=== PATIENT | male | born 1955 ===

== ENCOUNTER 2019-10-22 16:54 | Observation (INO) | payer SELFPAY ==
[2019-10-22] VITALS (13 sets, daily range): BP systolic 112–138; BP diastolic 54–77; PULSE 46–63; RESP 15–22; TEMP 36.6–37.9; O2SAT 95–100; BMI 25.0
--- NOTE | 2019-10-22 16:57 | ECG_ITS ---
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 Measurements Intervals [place] Rate: 48 P: 67 [place]: 122 QRS: 82 QRSD: 102 T: -83 QT: 493 QTc: 443 Interpretive Statements SINUS BRADYCARDIA ST DEVIATION AND MODERATE T-WAVE ABNORMALITY, CONSIDER INFERIOR ISCHEMIA [-0.1+ mV T WAVE IN II/aVF] No previous ECG available for comparison Electronically Signed On 10-22-2019 18:08:06 CDT by Prasanth Arias M.D. [email or web address] [facility].[employer]/store/NU/[id number] f
[2019-10-22] MEDS: sodium chloride 0.9% 1,000 ML 999 ML IV ×2 (18:02→18:41)
[2019-10-22 18:14] LABS: Basophils # 0.1 10^3/uL (0.0-0.1); Basophils % 0.4 %; Hematocrit 44.3 % (42.0-52.0); Hemoglobin 15.2 g/dL (11.7-16.6); Lymphocytes % 15.2 %; Mean Corpuscular HGB Conc 34.3 g/dL (30.0-36.0); Mean Corpuscular Hemoglobin 32.4 pg (28.0-34.0); Mean Corpuscular Volume 94.5 fL (80-94); Mean Platelet Volume 10.7 fL (7.4-10.4); Monocytes % 7.2 %; Neutrophils # 10.13 10^3/uL (1.8-7.7); Neutrophils % 76.7 %; Nucleated Red Blood Cells % 0 %; Platelet Count 281 10^3/cmm (130-400); Red Blood Count 4.69 10^6/uL (4.1-5.3); Red Cell Distribution Width 12.7 % (12.1-15.1); White Blood Count 13.2 10^3/uL (4.0-10.0)
[2019-10-22] MEDS: famotidine 20 mg/2 mL INJ 40 MG IVP (18:40)
[2019-10-22 18:41] LABS: Alanine Aminotransferase 120 U/L (0-41); Albumin Level 4.8 g/dL (3.5-5.2); Alkaline Phosphatase 127 IU/L (40-130); Anion Gap 16.4 (5-19); Aspartate Amino Transferase 98 U/L (0-40); Blood Urea Nitrogen 13 mg/dL (8-23); Calcium 9.9 mg/dL (8.5-10.5); Carbon Dioxide 24 mmol/L (22-29); Chloride 99 mmol/L (98-107); Globulin 3.2 g/dL (1.3-4.6); Glomerular Filtration Rate 113.9 mL/min (90-130); Glucose 150 mg/dL (65-115); Osmolality Calculated 281 mOsm/kg (285-295); Potassium 3.4 mmol/L (3.5-5.1); Sodium 136 mmol/L (136-145); Total Bilirubin 1.3 mg/dL (0.15-1.2)
[2019-10-22] MEDS: ondansetron 2 mg/ML SDV 2 mL 4 MG IVP (18:41)
[2019-10-22 18:44] LABS: Troponin(5th) Baseline 7 ng/L (0-15)
--- NOTE | 2019-10-22 18:54 | PC.NURSE ---
Report given to Raudel Owens RN
--- NOTE | 2019-10-22 18:57 | ECG_ITS ---
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 Measurements Intervals [place] Rate: 45 P: [place]: -1 QRS: 88 QRSD: 109 T: -75 QT: 487 QTc: 424 Interpretive Statements SUPRAVENTRICULAR BRADYCARDIA, possibly junctional rhythm ST DEVIATION AND MODERATE T-WAVE ABNORMALITY, CONSIDER INFERIOR ISCHEMIA [-0.1+ mV T WAVE IN II/aVF] Compared to ECG 10/22/2019 18:01:13 Sinus bradycardia no longer present T-wave abnormality still present Possible ischemia still present Electronically Signed On 10-23-2019 21:08:44 CDT by Stephen Kim M.D. [id number]
--- NOTE | 2019-10-22 19:30 | ED_ITS ---
HPI - Nausea/Vomiting/Diarrhea General: Chief complaint: Nausea/Vomiting/Diarrhea Stated complaint: syncope/n/v Time Seen by Provider: 10/22/19 18:01 History of Present Illness: HPI Narrative: This patient is a 64-year-old male presenting today with chills, nausea vomiting and abdominal pain. His symptoms have been going on today as far as the vomiting but he has had several days of being very fatigued and not feeling well. He has had shaking chills. He had a syncopal or near syncopal episode today. His says he is normally extremely active and this is definitely not himself. Dr. Cloud is his PCP.He does have a history of hepatitis C. He has had hernia repairs but no other abdominal surgeries. MD elicited complaint: nausea, vomiting and abdominal pain Onset (ago): day(s) (1) Associated nausea: Yes Associated abdominal pain: Yes Location of pain: RUQ Pain consistency: constant Severity: moderate Quality: cramping Exacerbating factors: none Relieving factors: none Associated symtoms: Reports dizziness, fatigue, fevers/chills, anorexia, malaise and nausea Review of Systems General: Reports: 10 or more systems reviewed and unremarkable except in HPI and below Const: Reports: fatigue and malaise GI: Reports: nausea Neuro: Reports: dizziness PFSH ED PFSH: Medical History Back pain Surgical History S/P bilateral inguinal hernia repair Status post colonoscopy Physical Exam Const: COMMON NORMALS: average body habitus, patient oriented x3 and alert EXAM LIMITATIONS: other limitations (Patient is curled up on the stretcher with shaking chills) GENERAL APPEARANCE: cooperative, in distress and anxious ORIENTATION/CONSCIOUSNESS: Yes awake HENMT: HEAD & SCALP: normal to inspection FACE & SINUS: normal facial exam Eye: GENERAL EYE: appearance normal, both eyes and all related structures Neck/C-Spine: COMMON NORMALS: supple, no meningeal signs and no JVD Chest: COMMONS NORMALS: normal inspection of the chest Resp: COMMON NORMALS: normal respiratory effort, No use of accessory muscles and clear to auscultation bilaterally AUSCULTATION: clear to auscultation bilaterally Cardio: COMMON NORMALS: no JVD, regular rate, regular rhythm and No murmurs present (Cardio) RATE: regular rate RHYTHM: regular rhythm GI: COMMON NORMALS: Normal to inspection, nondistended, normoactive bowel sounds present and non-tender PALPATION: Yes Tenderness to palpation present (GI) Details: RUQ Back/Pelvis: COMMON NORMALS: thoracic and lumbar spine normal to inspection Extremity: COMMON NORMALS: normal to inspection Neuro: COMMON NORMALS: patient oriented x3, moves all extremities, no focal motor deficits and no sensory deficits noted SENSORIUM/ORIENTATION: Yes alert MENINGEAL SIGNS: Yes no meningeal signs Psych: COMMON NORMALS: mental status grossly normal, cooperative and normal affect Skin: COMMON NORMALS: no rashes or lesions noted and turgor normal GENERAL SKIN EXAM: no rashes or lesions noted and turgor normal Course ED course: Patient with abdominal pain, chills but no documented fever, vomiting he was given fluids, antiemetics. Work-up showed a slightly elevated white count. CT showed a enlarged appendix consistent with early appendiciti s.He will be admitted to Dr. Pryor for surgery in the morning. Zosyn Q8 hours ordered. Vital Signs: Vital signs: Vital Signs Temperature 100 F H 10/23/19 09:35 Pulse Rate 53 L 10/23/19 09:35 Respiratory Rate 18 10/23/19 09:35 Blood Pressure 105/53 10/23/19 09:35 Pulse Oximetry 98 10/23/19 09:35 MDM - Nausea/Vomiting/Diarrhea Lab Data: Labs: Lab Results 10/22/19 10/22/19 10/22/19 Range/Units 18:05 18:05 18:05 WBC 13.2 H (4.0-10.0) 10^3/ uL RBC 4.69 (4.1-5.3) 10^6/u L Hgb 15.2 (11.7-16.6) g/dL Hct 44.3 (42.0-52.0) % MCV 94.5 H (80-94) fL MCH 32.4 (28.0-34.0) pg MCHC 34.3 (30.0-36.0) g/dL RDW 12.7 (12.1-15.1) % Plt Count 281 (130-400) 10^3/c mm MPV 10.7 H (7.4-10.4) fL Neut % (Auto) 76.7 % Lymph % (Auto) 15.2 % [place] % (Auto) 7.2 % Eos % (Auto) 0.0 % Baso % (Auto) 0.4 % Neut # (Auto) 10.13 H (1.8-7.7) 10^3/u L Lymph # (Auto) 2.0 (0.8-4.8) 10^3/u L [place] # (Auto) 1.0 H (0.2-0.9) 10^3/u L Eos # (Auto) 0.0 (0.0-0.8) 10^3/u L Baso # (Auto) 0.1 (0.0-0.1) 10^3/u L Nucleated RBC % (a uto) 0 % Nucleated RBCs # 0.0 /100WBC Sodium 136 (136-145) mmol/L Potassium 3.4 L (3.5-5.1) mmol/L Chloride 99 (98-107) mmol/L Carbon Dioxide 24 (22-29) mmol/L Anion Gap 16.4 (5-19) BUN 13 (8-23) mg/dL Creatinine 0.7 (0.7-1.2) mg/dL GFR Calculation 113.9 (90-130) mL/min Glucose 150 H (65-115) mg/dL Calculated Osmolal ity 281 L (285-295) mOsm/k g Calcium 9.9 (8.5-10.5) mg/dL Total Bilirubin 1.3 H (0.15-1.2) mg/dL AST 98 H (0-40) U/L ALT 120 H (0-41) U/L Alkaline Phosphata se 127 (40-130) IU/L Troponin T Baselin e 7 (0-15) ng/L Troponin T [address] [place] (0-15) ng/L Delta Troponin T (0-10) ABS# Total Protein 8.0 (6.6-8.7) g/dL Albumin 4.8 (3.5-5.2) g/dL Globulin 3.2 (1.3-4.6) g/dL Urine Color (Yellow) Urine Appearance (CLEAR) Urine pH (5-7) Ur Specific Gravit y (1.005-1.030) Urine Protein (Negative) Urine Glucose (UA) (Normal) Urine Ketones (Negative) Urine Blood (Negative) Urine Nitrate (Negative) Urine Bilirubin (NEGATIVE) Urine Urobilinogen (Negative) mg/dL Ur Leukocyte Camelia ase (Negative) 10/22/19 10/22/19 Range/Units 19:28 19:59 WBC (4.0-10.0) 10^3/ uL RBC (4.1-5.3) 10^6/u L Hgb (11.7-16.6) g/dL Hct (42.0-52.0) % MCV (80-94) fL MCH (28.0-34.0) pg MCHC (30.0-36.0) g/dL RDW (12.1-15.1) % Plt Count (130-400) 10^3/c mm MPV (7.4-10.4) fL Neut % (Auto) % Lymph % (Auto) % [place] % (Auto) % Eos % (Auto) % Baso % (Auto) % Neut # (Auto) (1.8-7.7) 10^3/u L Lymph # (Auto) (0.8-4.8) 10^3/u L [place] # (Auto) (0.2-0.9) 10^3/u L Eos # (Auto) (0.0-0.8) 10^3/u L Baso # (Auto) (0.0-0.1) 10^3/u L Nucleated RBC % (a uto) % Nucleated RBCs # /100WBC Sodium (136-145) mmol/L Potassium (3.5-5.1) mmol/L Chloride (98-107) mmol/L Carbon Dioxide (22-29) mmol/L Anion Gap (5-19) BUN (8-23) mg/dL Creatinine (0.7-1.2) mg/dL GFR Calculation (90-130) mL/min Glucose (65-115) mg/dL Calculated Osmolal ity (285-295) mOsm/k g Calcium (8.5-10.5) mg/dL Total Bilirubin (0.15-1.2) mg/dL AST (0-40) U/L ALT (0-41) U/L Alkaline Phosphata se (40-130) IU/L Troponin T Baselin e (0-15) ng/L Troponin T [address] [place] 9.40 (0-15) ng/L Delta Troponin T 2.40 (0-10) ABS# Total Protein (6.6-8.7) g/dL Albumin (3.5-5.2) g/dL Globulin (1.3-4.6) g/dL Urine Color Yellow (Yellow) Urine Appearance Clear (CLEAR) Urine pH 6.5 (5-7) Ur Specific Gravit y 1.015 (1.005-1.030) Urine Protein Neg (Negative) Urine Glucose (UA) Norm (Normal) Urine Ketones Negative (Negative) Urine Blood Neg (Negative) Urine Nitrate Negative (Negative) Urine Bilirubin Neg (NEGATIVE) Urine Urobilinogen Neg (Negative) mg/dL Ur Leukocyte Camelia ase Negative (Negative) Discharge Plan Discharge Patient Disposition: Admitted As Inpatient Admit Provider: René Pryor Discharge Date/Time: 10/22/19 23:13 Coding Level of Care Code ED Inspector Coated Fabrics for Chg Fwd Exam Comprehensive
--- NOTE | 2019-10-22 19:58 | CTR_ITS ---
PROCEDURE INFORMATION: Exam: CT Abdomen And Pelvis With Contrast Exam date and time: 10/22/2019 8:00 PM Age: 64 years old Clinical indication: Nausea and vomiting; Abdominal pain; Localized; Right lower quadrant (rlq); Prior surgery; Surgery type: Hernia; Additional info: Abdominal pain, fever TECHNIQUE: Imaging protocol: Computed tomography of the abdomen and pelvis with intravenous contrast. Radiation optimization: All CT scans at this facility use at least one of these dose optimization techniques: automated exposure control; mA and/or kV adjustment per patient size (includes targeted exams where dose is matched to clinical indication); or iterative reconstruction. Contrast material: OMNI 300; Contrast volume: 95 ml; Contrast route: INTRAVENOUS (IV); COMPARISON: CT abdomen pelvis w con* [id number] 03/25/2016 5:31 PM RADIATION DOSE METRICS: Total DLP (mGy-cm): 897.86 FINDINGS: Lungs: And limited assessment of the lung bases fails to reveal evidence for active cardiopulmonary process. Liver: Suspected very tiny hepatic cyst dome right hepatic lobe stable. Liver otherwise unremarkable. No visible hepatic mass. Gallbladder and bile ducts: Normal. No calcified stones. No ductal dilation. Pancreas: Normal. No ductal dilation. Spleen: Normal. No splenomegaly. Adrenals: Normal. No mass. Kidneys and ureters: Left nephrolithiasis the largest measuring 8.5 mm at the equator. A total of 4 nonobstructing caliceal foci of nephrolithiasis left kidney identified. No hydronephrosis or perinephric fluid. No visible ureterolithiasis. 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 No hydronephrosis or perinephric fluid right kidney. No visible nephrolithiasis right kidney. Right renal artery origin lobe off the distal aorta just before the bifurcation. Stomach and bowel: Small hiatal hernia. Nonobstructive bowel pattern. No visible significant adynamic or reactive ileus. Appendix: Examination reveals findings suggesting the presence of low-grade acute appendicitis. The appendix on today's examination is located low in the pelvis and appears significantly more prominent than on the examination of 03/25/2016. No visible periappendiceal abscess or extraluminal gas. Intraperitoneal space: No free fluid the pelvis. Vasculature: The abdominal aorta is nonaneurysmal. Mild arterial sclerotic disease. Lymph nodes: Unremarkable. No enlarged lymph nodes. Bladder: Unremarkable as visualized. Reproductive: Mild prostate hypertrophy. Bones/joints: No visible acute osseous abnormality. Degenerative disease and degenerative disc disease of the spine with vacuum disc phenomenon L3/4, L4/5, and L5/S1. Spondylosis deformans. Soft tissues: Unremarkable. CT/CT abdomen pelvis w con* [id number] IMPRESSION: 1. Findings suspicious for low-grade uncomplicated acute appendicitis. 2. Left nephrolithiasis without hydronephrosis or hydroureter. No visible ureterolithiasis. 3. Other nonemergent and nonurgent findings as detailed in text. Radiation Dose CTDIVOL = (mGy): DLP = 897.86 (mGy-cm)
[2019-10-22 20:05] LABS: Add Urine Microscopic? NO
[2019-10-22 20:16] LABS: Bilirubin Urine Neg (NEGATIVE); Blood Urine Neg (Negative); Glucose Urine UA Norm (Normal); Ketones Urine Negative (Negative); Leukocyte Esterase Urine Negative (Negative); Nitrate Urine Negative (Negative); Protein Urine Neg (Negative); Specific Gravity, Urine 1.015 (1.005-1.030); Urine Appearance Clear (CLEAR); Urine Color Yellow (Yellow); Urobilinogen Urine Neg (Negative); pH Urine 6.5 (5-7)
[2019-10-22] MEDS: LORazepam 2 mg/mL INJ 1 mL 0.5 MG IVP (20:35)
[2019-10-22] MEDS: iohexol 300 mg/mL 100 mL Btl IV (20:57)
[2019-10-22] MEDS: piperacillin-tazobactam 3.375 GM in sodium chloride 0.9% (plus) 50 ML IV (22:22)
--- NOTE | 2019-10-22 22:57 | ECG_ITS ---
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 Measurements Intervals [place] Rate: 48 P: [place]: -1 QRS: 71 QRSD: 105 T: -46 QT: 562 QTc: 503 Interpretive Statements Possible junctional rhythm MODERATE T-WAVE ABNORMALITY, CONSIDER INFERIOR ISCHEMIA [-0.1+ mV T WAVE IN II/aVF] Compared to ECG 10/22/2019 19:04:53 No significant changes Electronically Signed On 10-23-2019 21:14:17 CDT by Stephen Kim M.D. [email or web address] [id number]
[2019-10-22 23:30] LABS: Troponin 5 6HR 14.55 ng/L (0-15)
[2019-10-22 23:53] LABS: Troponin 5 6HR Delta 7.55 ng/L (0-12)
[2019-10-23] VITALS (14 sets, daily range): BP systolic 100–136; BP diastolic 53–71; PULSE 42–57; RESP 16–19; TEMP 36.8–37.7; O2SAT 94–100
[2019-10-23] MEDS: sodium chlor 0.9% + KCl 20 mEq 20 MEQ/1,000 ML BAG 100 MEQ IV ×2 (02:24→14:43)
--- NOTE | 2019-10-23 09:44 | P.ANESASSM_ITS ---
Pre-Anesthetic Assessment Pre-Anesthetic Assessment: Height/Weight: Height 1.7 m Weight 72.575 kg Temp Pulse Resp BP Pulse Ox 99.0 F 57 L 18 107/63 98 10/23/19 08:00 10/23/19 08:00 10/23/19 08:00 10/23/19 08:00 10/23/19 08:00 Preop Diagnosis: acute appendicitis Proposed Procedure: Operation Date: 10/23/19 09:55 Proposed Procedures p Laparoscopic Appendectomy(Not Applicable) - René Pryor MD Social: Social History: No alcohol and No tobacco Exam: Pre-Anes Outpt Exam: alert, oriented x 3, clear to auscultation bilaterally and regular rate & rhythm Airway: Submandibular: WNL Cervical ROM: WNL MP: 2 Dentition: Other (poor dentation) History/ROS: No significant history except as noted Pulmonary: Pulmonary: None reported CV/HEM: CV/HEM: None reported : : None reported Hepatic: Hepatic: Hepatitis (h/o Hep C) GI: GI: GERD (occ) Metabolic: Metabolic: None reported Musc/skel: Musc/skel: OA/DJD Neuropsych: Neuropsych: Anxiety Anesthetic Plan: ASA status: 2 Anesthesia: Anesthesia Evaluation and General Risk of > 500 ml blood loss (7ml/kg in children): No Meds/Allergies Current Medications: Current Medications Generic Name Dose Route Start Last Admin Trade Name Freq PRN Reason Stop Dose Admin Potassium Chloride /Sodium Chloride 20 meq in 1,000 m ls @ 100 mls/hr 10/23/19 01:30 10/23/19 02:24 Sodium Chlor 0.9 % + Kcl 20 Meq IV 100 mls/hr .Q10H SEAMUS Administration Data Anesthesia CBC & Chem 7: 10/22/19 18:05 10/22/19 18:05 Other Labs: Laboratory Results - last 48 hr 10/22/19 10/22/19 10/22/19 18:05 18:05 18:05 WBC 13.2 H RBC 4.69 Hgb 15.2 Hct 44.3 MCV 94.5 H MCH 32.4 MCHC 34.3 RDW 12.7 Plt Count 281 MPV 10.7 H Neut % (Auto) 76.7 Lymph % (Auto) 15.2 [place] % (Auto) 7.2 Eos % (Auto) 0.0 Baso % (Auto) 0.4 Neut # (Auto) 10.13 H Lymph # (Auto) 2.0 [place] # (Auto) 1.0 H Eos # (Auto) 0.0 Baso # (Auto) 0.1 Nucleated RBC % (auto) 0 Nucleated RBCs # 0.0 Sodium 136 Potassium 3.4 L Chloride 99 Carbon Dioxide 24 Anion Gap 16.4 BUN 13 Creatinine 0.7 GFR Calculation 113.9 Glucose 150 H Calculated Osmolality 281 L Calcium 9.9 Total Bilirubin 1.3 H AST 98 H ALT 120 H Alkaline Phosphatase 127 Troponin T Baseline 7 Troponin T 120 Minute Delta Troponin T Troponin T Hi Sens 6Hr Troponin T Hi Sens 6Hr Delta Total Protein 8.0 Albumin 4.8 Globulin 3.2 Urine Color Urine Appearance Urine pH Ur Specific [place] Urine Protein Urine Glucose (UA) Urine Ketones Urine Blood Urine Nitrate Urine Bilirubin Urine Urobilinogen Ur Leukocyte Esterase 10/22/19 10/22/19 10/22/19 19:28 19:59 22:58 WBC RBC Hgb Hct MCV MCH MCHC RDW Plt Count MPV Neut % (Auto) Lymph % (Auto) [place] % (Auto) Eos % (Auto) Baso % (Auto) Neut # (Auto) Lymph # (Auto) [place] # (Auto) Eos # (Auto) Baso # (Auto) Nucleated RBC % (auto) Nucleated RBCs # Sodium Potassium Chloride Carbon Dioxide Anion Gap BUN Creatinine GFR Calculation Glucose Calculated Osmolality Calcium Total Bilirubin AST ALT Alkaline Phosphatase Troponin T Baseline Troponin T 120 Minute 9.40 Delta Troponin T 2.40 Troponin T Hi Sens 6Hr 14.55 Troponin T Hi Sens 6Hr Delta 7.55 Total Protein Albumin Globulin Urine Color Yellow Urine Appearance Clear Urine pH 6.5 Ur Specific [place] 1.015 Urine Protein Neg Urine Glucose (UA) Norm Urine Ketones Negative Urine Blood Neg Urine Nitrate Negative Urine Bilirubin Neg Urine Urobilinogen Neg Ur Leukocyte Esterase Negative Cardiac Studies: No Data to Display
--- NOTE | 2019-10-23 09:55 | P.HP_ITS ---
Providers/Chief Complaint Admitting Physician: René Pryor MD Primary Care Provider: Fabrizio Cloud MD Chief Complaint: syncope/n/v History of Present Illness Aramis Dalal is a 64 year old male who states that been has been dealing with intermittent abdominal pain mainly on the right side for the last couple of months but yesterday presented to the ER with severe nausea and vomiting. Patient states the pain is localized to the right lower quadrant, no aggravating or relieving factors. Does not radiate. Denies any constipation or diarrhea. His last colonoscopy was 2 years ago and he needs one every 5 years. No bleeding per rectum. No fevers or chills. Review of Systems General: Reports: 10 or more systems reviewed and unremarkable except in HPI and below Medications/Allergies Home Medications Medication Instructions Recorded Confirmed Last Taken Type Vitamin B-12 1 tab PO DAILY 10/22/19 10/22/19 10/22/19 History alprazolam [Xanax] 0.5 mg PO BID PRN 10/22/19 10/22/19 10/21/19 History naproxen sodium [Aleve] 660 mg PO PRN 10/22/19 10/22/19 Unknown History tramadol 50 mg PO QID PRN 10/22/19 10/22/19 10/22/19 07:30 History Allergies Allergy/AdvReac Type Severity Reaction Status Date / Time No Known Allergies Allergy Unverified 10/22/19 18:08 PFSH Acute PFSH: Medical History Back pain Surgical History S/P bilateral inguinal hernia repair Status post colonoscopy Vitals/I&O/Wt Last Vital Signs Temp 100 F H 10/23/19 09:35 Pulse 53 L 10/23/19 09:35 Resp 18 10/23/19 09:35 BP 105/53 10/23/19 09:35 Pulse Ox 98 10/23/19 09:35 10/22/19 10/23/19 10/23/19 22:59 06:59 14:59 Intake Total 2049 Output Total 300 / 300 Balance 2049 -1749 Weight last 48 hrs Weight 160 lb Physical Exam Narrative: EXAM NARRATIVE: HEENT: Normocephalic Eye: Sclera /conjunctiva normal Respiratory and chest: Bilateral clear breath sounds on auscultation Cardiovascular: Normal S1 and S2 heart sounds Abdomen: Soft to palpation, tender right lower quadrant, rebound tenderness present Neurological: Oriented to place person and time Skin: Intact, no lesions appreciated on gross exam Data : 10/22/19 18:05 10/22/19 18:05 A&P Assessment and plan (1) Acute appendicitis: 64-year-old male with right lower quadrant pain, leukocytosis with CT scan showing acute appendicitis Plan for laparoscopic possible open appendectomy today Procedure, risks, benefits and alternatives have been discussed with the patient who wishes to proceed with surgery. Status: Acute Attestations Medical Necessity Statement*: Acute appendicitis Coding Level of Care Code Acute Commercial Director for Marie Fernandez Diagnoses Acute appendicitis K35.80
[2019-10-23] MEDS: sodium chloride 0.9% 1,000 ML 30 ML IV (10:23)
--- NOTE | 2019-10-23 11:17 | PC.CHAP ---
Pastoral Care Encounter/Spiritual Assessment Type of Contact [] Declined sonar subsystem equipment operator visit [] Patient/Family/Request visit [] Outpatient visit [] Follow-up visit [] Physician referral [] Code/Alert [] Routine visit [] Staff referral [] Actively dying [] Patient sleeping [] Family support [] [x] Out of room [] Palliative care [] [] Receiving care in room [] Pre-surgical visit [] Trauma [] Long length of stay [] ICU visit [] Other: Relational/Emotional Strength [] Patient feels connected with others/family/visitors/staff [] Distress [] Loneliness/isolation [] Abandonment Spirituality of Patient [] Person of Deena [] Attends Mandaeism of their Deena [] Believes in Prayer [] Reads Bible or Muslim materials [] There are Spiritual issues to be addressed Absorption Operator Interventions [] Prayer [] Active listening [] Non-anxious presence [] Spiritual/emotional support [] Crisis/trauma care [] Spiritual counseling [] Bereavement support [] Provided bereavement packet [] Provided Bible/devotional materials [] Provided toy/stuffed animal, coloring book to patient or family member [] Provided Communion [] Anointing/[place] [] Salvation [] Completed spiritual assessment [] Other: Impact on Illness or Injury [] Angry [] Fearful [] Anxious [] Often cries [] Exhaustion [] Unable to work [] Unable to attend jain [] Unable to walk/stand [] Unable to read [] Unable to drive [] Unable to eat/drink [] Unable to sleep [] Unable to be with family [] Patient intubated [] Other: Summary Time spent with patient
[2019-10-23] MEDS: piperacillin-tazobactam 3.375 GM in sodium chloride 0.9% (plus) 50 ML IV (11:54)
[2019-10-23] MEDS: fentaNYL 50 mcg/mL INJ 2mL IVP (12:11)
--- NOTE | 2019-10-23 12:21 | SUR.PHASEI ---
PT AWAKE ALERT TALKATIVE STATS PAIN IS MUCH BETTER, VSS IV PATENT SEE EARLIER PAIN MEDS GIVEN PT TAKING ICE CHIPS ABD SOFT SITES X 3 D/I
--- NOTE | 2019-10-23 12:24 | PM.OP ---
Operative Report Date of procedure: October 23, 2019 Pre-op Diagnosis: acute appendicitis Post-op Diagnosis: Tip of the appendix appeared inflamed Small bowel appeared normal Procedure Done: Laparoscopic appendectomy Specimens removed/disposition: Appendix Surgeon: René Pryor Anesthesia: General Procedure: The patient was taken to the Operating Room and intubated under general anesthesia after antibiotic had been administered. Using a 15 blade, a 1-cm infraumbilical incision was made and using open Tiffany technique, the peritoneal cavity was entered. A 12mm port with balloon was placed and 14 mm of pneumoperitoneum was created and 10-mm 30 degree scope was introduced. Two separate 5mm ports were placed in the left and right lower quadrant under direct visualization. The appendix was noted in the right lower quadrant and the tip appeared mildly inflamed. The small bowel was examined from the ligament of Treitz to the cecum and there were no abnormalities noted. The colon grossly appeared normal. Using [place] forceps, an opening was made in the mesoappendix near the base of the appendix. An Endo APRIL stapler 45mm long 3.5mm blue load was introduced to divide the appendix at it's base. Using electrocautery, the mesoappendix including the appendicular artery was divided. There was no bleeding noted and the staple line appeared intact. The right lower quadrant was irrigated with saline and an EndoCatch bag was introduced to remove the appendix. All three ports were removed under direct visualization and there was no bleeding noted on the port sites. 10 cc 0.5% Marcaine was infiltrated at the port sites. The fascia at the umbilical port was closed using figure of eight 0-Vicryl sutures and subcutaneous tissue was approximated using 3-0 Vicryl and skin at all 3 port sites was closed using 4-0 Monocryl and Dermabond.
--- NOTE | 2019-10-23 12:26 | P.DS_ITS ---
Discharge Providers Date of Admission: 10/22/19 21:39 Date of Discharge: October 23, 2019 Attending Provider at Admission: René Pryor MD Attending Provider at Discharge: René Pryor MD Primary Care Provider: Fabrizio Cloud MD Diagnoses at Discharge Discharge Diagnosis (1) Acute appendicitis: Status: Resolved Reason for Visit Reason for Visit: syncope/n/v Hospital Course Hospital Course: This is a 64-year-old male who presented to the ER with abdominal pain nausea and vomiting and CT scan showed early acute appendicitis. Patient is admitted to the hospital and underwent laparoscopic appendectomy the following morning. At time of discharge his vital signs are stable and is tolerating a liquid diet. Discharge Data Data Completed and Pending: Completed Studies During Hospitalization Category Date Time Status CT abdomen pelvis w con* [id number] Urge nt Cat Scan 10/22/19 19:58 Completed Pending at discharge Category Date Time Status Pathology: Surgic al [PTH] Routine Pth 10/23/19 12:03 Ordered Labs from last 24 hours 10/22/19 10/22/19 10/22/19 22:58 19:59 19:28 WBC RBC Hgb Hct MCV MCH MCHC RDW Plt Count MPV Neut % (Auto) Lymph % (Auto) [place] % (Auto) Eos % (Auto) Baso % (Auto) Neut # (Auto) Lymph # (Auto) [place] # (Auto) Eos # (Auto) Baso # (Auto) Nucleated RBC % (a uto) Nucleated RBCs # Sodium Potassium Chloride Carbon Dioxide Anion Gap BUN Creatinine GFR Calculation Glucose Calculated Osmolal ity Calcium Total Bilirubin AST ALT Alkaline Phosphata se Troponin T Baselin e Troponin T 120 Min match-e-be-nash-she-wish band 9.40 Delta Troponin T 2.40 Troponin T Hi Sens 6Hr 14.55 Troponin T Hi Sens 6Hr Delta 7.55 Total Protein Albumin Globulin Urine Color Yellow Urine Appearance Clear Urine pH 6.5 Ur Specific Gravit y 1.015 Urine Protein Neg Urine Glucose (UA) Norm Urine Ketones Negative Urine Blood Neg Urine Nitrate Negative Urine Bilirubin Neg Urine Urobilinogen Neg Ur Leukocyte Camelia ase Negative 10/22/19 10/22/19 10/22/19 18:05 18:05 18:05 WBC 13.2 H RBC 4.69 Hgb 15.2 Hct 44.3 MCV 94.5 H MCH 32.4 MCHC 34.3 RDW 12.7 Plt Count 281 MPV 10.7 H Neut % (Auto) 76.7 Lymph % (Auto) 15.2 [place] % (Auto) 7.2 Eos % (Auto) 0.0 Baso % (Auto) 0.4 Neut # (Auto) 10.13 H Lymph # (Auto) 2.0 [place] # (Auto) 1.0 H Eos # (Auto) 0.0 Baso # (Auto) 0.1 Nucleated RBC % (a uto) 0 Nucleated RBCs # 0.0 Sodium 136 Potassium 3.4 L Chloride 99 Carbon Dioxide 24 Anion Gap 16.4 BUN 13 Creatinine 0.7 GFR Calculation 113.9 Glucose 150 H Calculated Osmolal ity 281 L Calcium 9.9 Total Bilirubin 1.3 H AST 98 H ALT 120 H Alkaline Phosphata se 127 Troponin T Baselin e 7 Troponin T 120 Min match-e-be-nash-she-wish band Delta Troponin T Troponin T Hi Sens 6Hr Troponin T Hi Sens 6Hr Delta Total Protein 8.0 Albumin 4.8 Globulin 3.2 Urine Color Urine Appearance Urine pH Ur Specific Gravit y Urine Protein Urine Glucose (UA) Urine Ketones Urine Blood Urine Nitrate Urine Bilirubin Urine Urobilinogen Ur Leukocyte Camelia ase Vitals: Last Vital Signs Temp 98.3 F 10/23/19 12:20 Pulse 42 L 10/23/19 12:20 Resp 18 10/23/19 12:20 BP 132/64 10/23/19 12:20 Pulse Ox 100 10/23/19 12:20 Discharge Plan Discharge Patient Disposition: Home Condition: Stable Prescriptions: [place] 5-325 mg tablet 1 tab PO Q6H 7 Days Qty: 20 RF: 0 docusate sodium [Colace] 100 mg capsule 100 mg PO BID Qty: 30 RF: 0 ondansetron HCl [Zofran] 4 mg tablet 4 mg PO Q6H PRN (Reason: nausea and vomiting) Qty: 20 RF: 0 Continued tramadol 50 mg Tablet 50 mg PO QID PRN (Reason: Pain) RF: 0 Xanax 0.5 mg Tablet 0.5 mg PO BID PRN (Reason: unknown) RF: 0 Aleve 220 mg Tablet 660 mg PO PRN RF: 0 Vitamin B-12 1 tab PO DAILY RF: 0 Referrals: René Pryor MD [Physician] - 2 weeks Discharge Diet: Advance as tolerated Activity Restrictions/Additional Instructions: 1. Up and walking as tolerated. 2. Ok to shower in 48 hours after surgery. 3. Remove Dermabond dressing in 7-10 days. 4. Do not lift more than 10 pounds. 5. Do not operate heavy machinery or drive while using pain medications. 6. Advised to return to ER or contact my office if there are any signs of infection like, increasing pain, fevers, chills, redness or drainage of pus. Discharge Attestations Time Spent in Discharge Care*: less than 30 min Quality Metrics Clinical Quality Measures During this hospital stay, did patient experience: None Coding Level of Care Code Acute Pulley Worker for Marie Fernandez Diagnoses Acute appendicitis K35.80
--- NOTE | 2019-10-23 12:44 | PC.NURSE ---
BACK FROM OR PATIENT ARRIVED BACK FROM OR. PAIN CONTROLLED. TOLERATING LIQUID DIET. VITALS STABLE. SURGICAL STABS MIRIAN. ASYMPTOMATIC. RESTING WELL.
[2019-10-23] MEDS: HYDROcodone-acetaminophen 5-325 mg Tablet 1 TAB PO (12:50)
--- NOTE | 2019-10-23 12:54 | SUR.PHASEI ---
1230 PT AWAKE TALKATIVE TO ROOM , PT UP WALKED TO BED WITH MINIMAL ASSIST, FLOOR NURSE CRIME AT BEDSIDE AND HANDOFF DONE.
== END 2019-10-23 16:48 | disposition home or self-care (01) ==
LOC: ER 22:21 → MEDSURG 22:54
PROVIDERS: Family Medicine; Admitting Provider Surgery; PCP Family Medicine; Visit Provider Surgery
PROC: 0DTJ4ZZ Resection of Appendix, Percutaneous Endoscopic Approach (ICD-10-PCS; CPT 44970; principal; 2019-10-23 09:55)
DX: K35.80 Unspecified acute appendicitis (principal); Z86.19 Personal history of other infectious and parasitic diseases; M19.90 Unspecified osteoarthritis, unspecified site; K21.9 Gastro-esophageal reflux disease without esophagitis
CPT/HCPCS: 44970; 12345; 36415; 74177; 80053; 81003; 84484; 85025; 88304; 93005; 93010; 96361; 96365; 96375; 99284; 99285; G0378; J0330; J2060; J2405; J2543; J2704; J2710; J3010; J3490; J7030; Q9967

== ENCOUNTER → 2022-09-06 10:22 | Outpatient (BNVA) | payer MEDICARE, SELFPAY | PROVIDERS: PCP Family Medicine; Visit Provider Family Medicine | DX: R73.9 Hyperglycemia, unspecified (principal); R10.9 Unspecified abdominal pain; R53.83 Other fatigue; E11.9 Type 2 diabetes mellitus without complications; R01.1 Cardiac murmur, unspecified | CPT/HCPCS: 80053; 80061; 83036; 83880; 84443; 85025; 85651; 86140 ==

== ENCOUNTER → 2022-09-13 09:45 | Outpatient (BNVA) | payer MEDICARE, SELFPAY | PROVIDERS: PCP Family Medicine; Visit Provider Family Medicine | DX: R10.9 Unspecified abdominal pain (principal); R19.7 Diarrhea, unspecified | CPT/HCPCS: 87506 ==

== ENCOUNTER 2022-09-25 07:31 | Outpatient (CLI) | payer MEDICARE, SELFPAY ==
--- NOTE | 2022-09-25 08:00 | USCV_ITS ---
Aramis Dalal Age: 67 Gender: M : 1955 Exam Date: 09/25/2022 07:44 Ordering Phys: Fabrizio Cloud MD Technologist: CT Exam Location: [facility] [place] Indication: murmur BP: 150 / 75 HR: 85 Rhythm: Sinus Technical Quality: Adequate MEASUREMENTS (Male / Female) Normal Values 2D ECHO LV Diastolic Diameter PLAX 6.1 cm 4.2 - 5.9 / 3.9 - 5.3 cm LV Systolic Diameter PLAX 4.0 cm IVS Diastolic Thickness 0.9 cm 0.6 - 1.0 / 0.6 - 0.9 cm IVS Systolic Thickness 1.6 cm LVPW Diastolic Thickness 0.8 cm 0.6 - 1.0 / 0.6 - 0.9 cm LVPW Systolic Thickness 1.6 cm LVOT Diameter 2.4 cm LV Ejection Fraction 2D Teich 62.0 % LV Ejection Fraction MOD 2C 68.7 % LV Ejection Fraction 2C AL 68.3 % LA Diameter 3.8 cm Aorta at Sinotubular Diameter 2.8 cm IVC Diameter 1.8 cm M-MODE Aortic Annulus Diameter 2.9 cm LA Ao Ratio MM 1.6 MV E Point Septal Separation 1.0 cm DOPPLER AV Peak Velocity 316.0 cm/s LVOT Peak Velocity 94.0 cm/s AV Area Cont Eq vti 0.9 cm squared AV Area Cont Eq pk 1.3 cm squared MV Peak Velocity 264.0 cm/s MV Area PHT 3.4 cm squared Mitral E to A Ratio 1.5 MV E' Velocity 59.0 cm/s Mitral E to MV E' Ratio 8.9 Mitral E to LV E' Lateral Ratio 7.3 Mitral E to LV E' Septal Ratio 11.5 TR Peak Velocity 264.8 cm/s TR Peak Gradient 28.0 mmHg TR Mean Velocity 199.7 cm/s TR Mean Gradient 17.3 mmHg TR Velocity Time Integral 46.6 cm TV Peak E Velocity 93.0 cm/s Right Atrial Pressure 3.0 mmHg Pulmonary Artery Systolic Pressu 31.0 mmHg PV Peak Velocity 125.0 cm/s FINDINGS Left Ventricle Normal left ventricular size and systolic function, EF 65 %. No regional wall motion abnormalities. Right Ventricle The right ventricle is normal in size and function. Right Atrium The right atrium is normal in size. Left Atrium The left atrium is normal in size. Mitral Valve Severe prolapse of the posterior mitral leaflet. Moderate to severe eccentric mitral regurgitation Aortic Valve Thickened aortic valve. Tricuspid Valve Trace tricuspid valve regurgitation. Pulmonic Valve Trace pulmonary valve regurgitation. Pericardium No pericardial effusion. Aorta Normal ascending aorta dimension. IVC The inferior vena cava appears normal. CONCLUSIONS Normal left ventricular size and systolic function, EF 65 %. No regional wall motion abnormalities. Severe prolapse of the posterior mitral leaflet. Moderate to severe eccentric mitral regurgitation, possibly recent. Thickened aortic valve. Trace tricuspid valve regurgitation. Estimated pulmonary artery peak systolic pressure 31 mmHg No similar previous studies are available for comparison . Dr Stephen Kim MD [facility] (Electronically Signed) Final Date: 25 September 2022 19:52 S
== END 2022-09-25 07:32 | disposition home or self-care (01) ==
PROVIDERS: PCP Family Medicine; Visit Provider Family Medicine
DX: R01.1 Cardiac murmur, unspecified (principal); I34.1 Nonrheumatic mitral (valve) prolapse; I34.0 Nonrheumatic mitral (valve) insufficiency; I35.8 Other nonrheumatic aortic valve disorders
CPT/HCPCS: 80053; 80061; 83036; 83880; 84443; 85025; 85651; 86140; 93306

== ENCOUNTER → 2022-11-06 15:53 | Outpatient (BNVA) | payer MEDICARE, SELFPAY | PROVIDERS: PCP Family Medicine; Visit Provider Internal Medicine Cardiovascular Disease | DX: R01.1 Cardiac murmur, unspecified (principal); R53.83 Other fatigue; R03.0 Elevated blood-pressure reading, without diagnosis of hypertension; R76.8 Other specified abnormal immunological findings in serum; I34.0 Nonrheumatic mitral (valve) insufficiency; Z79.01 Long term (current) use of anticoagulants; R06.02 Shortness of breath; R07.9 Chest pain, unspecified; D72.829 Elevated white blood cell count, unspecified; R00.1 Bradycardia, unspecified | CPT/HCPCS: 80048; 83735; 83880; 85025; 87040; 93005; 99204 ==

== ENCOUNTER 2022-12-01 10:52 | Day surgery (SDC) | payer MEDICARE, SELFPAY ==
[2022-11-30 11:12] VITALS: BMI 25.7
--- NOTE | 2022-12-01 10:57 | USCV_ITS ---
Aramis Dalal Age: 67 Gender: M : 1955 Exam Date: 12/01/2022 12:19 Ordering Phys: Stephen Kim MD ([email or web address]) Technologist: LORENZA Exam Location: [facility] – [place] Indication: MVP BP: 125 / 71 HR: 40 Rhythm: Sinus Technical Quality: MEASUREMENTS (Male / Female) Normal Values 2D ECHO LVOT Diameter 2.0 cm DOPPLER LVOT Peak Velocity 150.3 cm/s MV Peak Velocity 110.0 cm/s Medications IV propofol, administered by anesthesia service Complications None Proc. Components The patient was brought to the LATASHA examination room in a fasting state after obtaining an informed consent. The LATASHA probe was passed into the posterior pharynx , mid-esophagus, distal esophagus, and gastric fundus. LATASHA was performed at multiple levels. The patient tolerated the procedure well and there were no complications. The patient had a lot of oral secretions. He had to be frequently suctioned. The study was somewhat technically difficult. FINDINGS Left Ventricle Appears to be of normal size and ejection fraction. No intracardiac masses were noted. Right Ventricle Patient with normal size. Right Atrium Normal size with no intracardiac masses. Left Atrium Appears to be mildly dilated. No intracavitary masses were noted. LA Appendage Normal size and contractility. IA Septum Appears to be intact. With his RN contrast injection, few bubbles crossed the interatrial septum, suggesting a small PFO. Mitral Valve Severe prolapse of the P2 scallop with mild prolapse of the A2 scallop. Severe eccentric mitral regurgitation, encircling the left atrium. The mitral regurgitant fraction was calculated to be 68% Aortic Valve Minimally thickened with no significant regurgitation. Tricuspid Valve Mild tricuspid valve regurgitation. Pulmonic Valve No gross abnormalities noted Pericardium No pericardial effusion. Aorta Normal aortic annulus size. CONCLUSIONS 1. Severe eccentric mitral regurgitation with a regurgitant fraction of 68% 2. Severe prolapse of the P2 scallop and mild prolapse of the A2 scallop 3. Mildly dilated left atrium 4. No intracavitary masses 5. No vegetations 6. Small PFO 7. Normal LV size and ejection fraction Technically somewhat difficult study Dr Stephen Kim MD [facility] (Electronically Signed) Final Date: 01 December 2022 19:26 S
[2022-12-01 11:13] VITALS: BP 142/74; PULSE 54; RESP 18; TEMP 36.3; O2SAT 100
[2022-12-01] MEDS: sodium chloride 0.9% 1,000 ML 30 ML IV (11:18)
--- NOTE | 2022-12-01 12:02 | ANES.PREANE2 ---
Pre-Anesthetic Assessment Height/Weight: Height 1.7 m Weight 74.389 kg Temp Pulse Resp BP Pulse Ox O2 Del Method 97.3 F L 54 L 18 142/74 100 Room Air 12/01/22 11:13 12/01/22 11:13 12/01/22 11:13 12/01/22 11:13 12/01/22 11:13 12/01/22 11:13 Preop Diagnosis: moderate to severe mitral regurgitation Operation Date: 12/01/22 12:00 Proposed Procedures p LATASHA [id number],I34.0(Not Applicable) - Stephen Kim MD Familial anesthetic complications: None Was Beta Jaida taken within 24 hours: N/A Was Clonidine taken within 24 hours: N/A Last intake: Intake Last Liquid Date 11/30/22 Last Liquid Time 19:00 Last Solid Date 11/30/22 Last Solid Time 18:00 Social No alcohol and No tobacco daily THC use Exam alert, oriented x 3, clear to auscultation bilaterally and regular rate & rhythm Airway Submandibular: within normal limits Cervical ROM: within normal limits Mallampati: Class II Dentition: partials History/ROS No significant history except as noted Pulmonary None reported CV/HEM moderate to severe mitral regurgitaion None reported Hepatic hepatitis C GI Gastroesophageal Reflux Disease (well controlled, related to diet) Metabolic None reported Musc/skel Lower Back Pain Neuropsych None reported Anesthetic Plan ASA status: 3 Anesthesia: Anesthesia Evaluation and MAC Risk of > 500 ml blood loss (7ml/kg in children): No Medications/Allergies Home Medications Medication Instructions Recorded Confirmed Last Taken Type Vitamin B-12 1 tab PO DAILY 10/22/19 11/30/22 11/30/22 History tramadol 50 mg tablet 50 mg PO QID PRN Pain #120 tabs 07/22/22 11/30/22 11/30/22 Rx omega [id number]-fish oil 300 1 cap PO DAILY 11/06/22 11/30/22 11/30/22 History mg-1,000 mg capsule,delayed release (Fish Oil) alprazolam 0.5 mg tablet (Xanax) 0.5 mg PO BID PRN Anxiety 11/30/22 11/30/22 11/30/22 History Allergies Allergy/AdvReac Type Severity Reaction Status Date / Time No Known Allergies Allergy Verified 12/01/22 11:08 Current Medications Generic Name Dose Route Start Last Admin Trade Name Freq PRN Reason Stop Dose Admin Sodium Chloride 1,000 mls @ 30 mls/hr 12/01/22 11:00 12/01/22 11:18 Sodium Chloride 0.9% IV 12/02/22 10:59 30 mls/hr .Q24H SEAMUS Administration PFSH Anesthesia Medical History Back pain Surgical History S/P bilateral inguinal hernia repair S/P laparoscopic appendectomy (10/23/19) Status post colonoscopy Data Anesthesia Cardiac Studies: Echocardiogram 09/25/22
--- NOTE | 2022-12-01 12:07 | W.PM.OPSUD ---
Surgery/Procedure H&P Update DATE OF PROCEDURE: December 01, 2022 DATE H&P PERFORMED: 11/06/22 H&P UPDATE INFORMATION: I have reviewed H&P completed within last 30 days, I have examined patient prior to procedure and No changes to prior documentation PREOP DIAGNOSIS: moderate to severe mitral regurgitation PRIMARY INDICATION FOR PROCEDURE: Mitral valve prolapse with mitral regurgitation. Low-grade fever and elevated white cell count, rule out any vegetation PLANNED PROCEDURE: Operation Date: 12/01/22 12:00 Proposed Procedures p LATASHA [id number],I34.0(Not Applicable) - Stephen Kim MD
[2022-12-01 12:56] VITALS: BP 143/95; PULSE 74; RESP 16; TEMP 36.1; O2SAT 99
[2022-12-01 13:01] VITALS: O2SAT 100
[2022-12-01 13:05] VITALS: BP 113/75; PULSE 64; RESP 16; O2SAT 100
[2022-12-01 13:13] VITALS: BP 128/76; PULSE 60; RESP 16; O2SAT 100
--- NOTE | 2022-12-01 13:31 | ANE.PACU2 ---
Inpatient post-anesthesia follow up: Airway intact: Yes Vital signs: Temperature 97 F Pulse Rate 60 Respiratory Rate 16 Blood Pressure 128/76 Pulse Oximetry 100 Oxygen Delivery Me thod Room Air Oxygen Flow Rate 10 Fraction of Inspir ed Oxygen Hydration adequate: Yes Nausea and vomiting: No Pain level: 0 Mental status: Baseline
== END 2022-12-01 13:55 | disposition home or self-care (01) ==
PROVIDERS: PCP Family Medicine; Visit Provider Internal Medicine Cardiovascular Disease
PROC: (CPT 93312; principal; 2022-12-01 12:00)
DX: I34.0 Nonrheumatic mitral (valve) insufficiency (principal); K21.9 Gastro-esophageal reflux disease without esophagitis; Z86.19 Personal history of other infectious and parasitic diseases; R03.0 Elevated blood-pressure reading, without diagnosis of hypertension; I49.9 Cardiac arrhythmia, unspecified; D72.829 Elevated white blood cell count, unspecified
CPT/HCPCS: 93312; 93320; 93325; J2704; J7030

== ENCOUNTER → 2024-10-28 10:46 | Outpatient (BNVA) | payer MEDICARE, SELFPAY | PROVIDERS: PCP Family Medicine; Visit Provider Dermatology | DX: N48.1 Balanitis (principal); B02.9 Zoster without complications; D22.5 Melanocytic nevi of trunk; L81.4 Other melanin hyperpigmentation; L82.1 Other seborrheic keratosis; D48.5 Neoplasm of uncertain behavior of skin; S40.861A Insect bite (nonvenomous) of right upper arm, initial encounter; X58.XXXA Exposure to other specified factors, initial encounter; L57.0 Actinic keratosis | CPT/HCPCS: 10120; 17000; 54100; 99203 ==